=== PATIENT | female | born 1980 | race Caucasian/White ===

== ENCOUNTER 2021-01-08 18:35 | Emergency (ER) | payer OTHER ==
[~2021-01-08] VITALS: Ht 165.1 cm; Wt 88.5 kg
[2021-01-08] MEDS ORDERED: SPIRONOLACTONE50 MG PO (18:46)
[2021-01-08] MEDS ORDERED: PEPCID20 MG PO (20:25)
[2021-01-08 21:00] VITALS: BP 136/65
== END 2021-01-08 21:00 | disposition home or self-care (01) ==
LOC: M.ERS 18:35
DX: L50.9 Urticaria, unspecified (principal)